=== PATIENT | female | born 1985 | race Caucasian/White ===

== ENCOUNTER → 2020-06-08 10:04 | Outpatient (CLI) | payer OTHER, SELFPAY ==
[2020-06-08 10:52] LABS: Hemoglobin 14.7 g/dL (12.0-16.0); Mean Corpuscular HGB Conc 34.3 % (30-36); Mean Corpuscular Volume 87.6 fL (80-100); Platelet Count 219 X10^3/uL (150-400); Red Blood Cell Count 4.91 X10^6/uL (4.0-5.2); Red Cell Distribution Width 12.8 % (11.6-14.8); White Blood Cell Count 5.9 X10^3/uL (4.5-11.0)
[2020-06-08 11:09] LABS: Alanine Aminotransferase 19 IU/L (<35); Albumin 4.6 g/dL (3.5-5.0); Albumin Globulin Ratio 1.6 (1.0-2.8); Alkaline Phosphatase 54 U/L (38-126); Aspartate Aminotransferase 32 IU/L (14-36); BUN Creatinine Ratio 18.3 (6-22); Bilirubin Total 1.4 mg/dL (0.2-1.3); Blood Urea Nitrogen 13 mg/dL (7-17); Calcium 9.8 mg/dL (8.4-10.2); Carbon Dioxide 23 mmol/L (22-32); Chloride 106 mmol/L (98-107); Cholesterol 177 mg/dL (140-199); Estimated Glomerular Filt Rate > 60.0 mL/min (>60); Globulin 2.9 g/dL (1.7-4.1); Glucose 101 mg/dL (70-100); HDL Cholesterol 52 mg/dL (40-60); HEMOLYSIS < 15 (0-50); LDL Cholesterol Calculated 110 mg/dL (<100); Potassium 4.7 mmol/L (3.4-5.1); Sodium 139 mmol/L (137-145); Total Protein 7.5 g/dL (6.3-8.2); Triglycerides 73 mg/dL (35-150)
[2020-06-08 11:19] LABS: Vitamin D 25 Hydroxy (D3) 80.4 ng/mL (30.0-100.0)
[2020-06-08 11:37] LABS: Testosterone 57.1 ng/dL (5.71-77.0)
== END ==
PROVIDERS: PCP Registered Nurse Diabetes Educator; Referring Provider Registered Nurse Diabetes Educator; Visit Provider Registered Nurse Diabetes Educator
DX: R63.5 Abnormal weight gain (principal)
CPT/HCPCS: 36415; 80053; 80061; 82306; 84403; 84443; 85027

== ENCOUNTER → 2020-07-11 12:20 | Outpatient (CLI) | payer OTHER, SELFPAY ==
[2020-07-11 13:55] LABS: Hemoglobin A1C% w Est Avg Glu 5.5 % (4.0-6.0)
== END ==
PROVIDERS: PCP Registered Nurse Diabetes Educator; Referring Provider Registered Nurse Diabetes Educator; Visit Provider Registered Nurse Diabetes Educator
DX: L68.0 Hirsutism (principal); R63.5 Abnormal weight gain; R73.01 Impaired fasting glucose
CPT/HCPCS: 36415; 83036

== ENCOUNTER → 2020-10-07 07:35 | Outpatient (CLI) | payer OTHER, SELFPAY ==
[2020-10-07 09:14] LABS: Follicle Stimulating Hormone 6.79 mIU/mL; Luteinizing Hormone 7.15 mIU/mL
[2020-10-07 09:21] LABS: Free T4, Direct Thyroxine 0.87 ng/dL (0.78-2.19)
[2020-10-07 09:32] LABS: Cortisol Random 13.4 ug/dL
[2020-10-07 09:34] LABS: Thyroid Stimulating Hormone 2.32 uIU/mL (0.47-4.68)
[2020-10-07 09:36] LABS: Testosterone 41.2 ng/dL (5.71-77.0)
[2020-10-18 12:10] LABS: 17 Hydroxycorticoste mg/g CRT 9.8 mg/gCR (2.0-6.5)
== END ==
PROVIDERS: PCP Registered Nurse Diabetes Educator; Referring Provider Student in an Organized Health Care Education/Training Program; Visit Provider Student in an Organized Health Care Education/Training Program
DX: E11.9 Type 2 diabetes mellitus without complications (principal); Z79.4 Long term (current) use of insulin
CPT/HCPCS: 36415; 82533; 83001; 83002; 83491; 84403; 84439; 84443

== ENCOUNTER → 2021-05-11 07:00 | Outpatient (CLI) | payer OTHER, SELFPAY ==
--- NOTE | 2021-05-11 07:01 | DI.RAD.S_ITS ---
PROCEDURE: XR WRIST RT MIN 3V INDICATIONS: eval R wrist pain, remote trauma TECHNIQUE: 4 views of the wrist were acquired. COMPARISON: None. FINDINGS: Bones: No fractures or dislocations. No suspicious bony lesions. Scaphoid view: Scaphoid is intact. Soft tissues: No suspicious soft tissue calcifications. IMPRESSION: No fracture. No osseous lesion. If symptoms and/or clinical suspicion for pathology persists, further assessment with repeat radiographs (7-10 days) or advanced imaging (e.g. CT, MRI or bone scan) should be considered. Dictated by: Kalie Saleh MD, PhD on 05/11/2021 at 9:17 Approved by: Kalie Saleh MD, PhD on 05/11/2021 at 9:17
[2021-05-11 08:03] LABS: Hemoglobin A1C% w Est Avg Glu 5.5 % (4.0-6.0)
[2021-05-11 08:08] LABS: Cholesterol 183 mg/dL (140-199); Glucose 84 mg/dL (70-100); HDL Cholesterol 44 mg/dL (40-60); LDL Cholesterol Calculated 111 mg/dL (<100); Triglycerides 138 mg/dL (35-150)
== END ==
PROVIDERS: PCP Registered Nurse Diabetes Educator; Referring Provider Registered Nurse Diabetes Educator; Visit Provider Registered Nurse Diabetes Educator
DX: M25.531 Pain in right wrist (principal); E78.00 Pure hypercholesterolemia, unspecified; R73.01 Impaired fasting glucose
CPT/HCPCS: 36415; 73110; 80061; 82947; 83036

== ENCOUNTER 2021-08-19 08:59 | Emergency (ER) | payer OTHER, SELFPAY ==
[2021-08-19 09:13] VITALS: BP 141/75; PULSE 56; RESP 20; TEMP 36.5; O2SAT 97
--- NOTE | 2021-08-19 09:57 | ED.EXTPRO ---
HPI - Extremity Problem General Chief complaint: Extremity Problem,Nontraumatic Stated complaint: Thinks she has Blood clot in [place] Left leg Time Seen by Provider: 08/19/21 09:57 Source: patient Mode of arrival: Ambulatory History of Present Illness HPI Narrative: Patient is a 36-year-old female history of pre diabetes and asthma presenting today with left eckert pain. She says that a few weeks ago she had a blood clot in her right leg by her knee she was not put on blood thinners. Likely a superficial thrombosis. Today she says she has been noticing a bump along her eckert. They are slightly tender to touch. She is afraid that they might be blood clots. They have been there for number of weeks and not going away. They are not getting any bigger. They are not red. She has absolutely no calf pain. She did not control she has not traveled anywhere recently she has not been hospitalized or sedentary. She is worried that she might have a blood clot. She also states that her whole family has problem with varicose veins and she has an appointment with a varicose vein provider. Related Data Home Medications Medication Instructions Recorded Confirmed ascorbate calcium (vitamin C) PO 12/03/19 07/19/21 multivitamin with iron PO 12/03/19 07/19/21 vitamin B complex PO 12/03/19 07/19/21 Previous Rx's Medication Instructions Recorded albuterol sulfate 90 mcg/actuation 2 puff inhalation Q4-6H PRN 05/08/21 aerosol inhaler shortness of breath or wheezing #17 grams hydroxyzine HCl 25 mg tablet 25 mg PO QID PRN anxiety #30 tabs 05/08/21 Allergies Allergy/AdvReac Type Severity Reaction Status Date / Time No Known Drug Allergies Allergy Verified 08/19/21 09:25 Review of Systems Review of Systems Narrative: GENERAL: Denies chills, fatigue, malaise, fever, sweats, travel HEENT: Denies sinus pain, ear pain, sore throat, difficulty swallowing, neck pain RESPIRATORY: Denies dyspnea, cough, wheezing, hemoptysis, sputum. CARDIOVASCULAR: Denies chest pain, palpitations, orthopnea, edema GASTROINTESTINAL: Denies nausea, vomiting, abdominal pain, diarrhea, constipation, melena. : Denies dysuria, frequency, incontinence, hematuria, urinary retention, flank pain. MUSCULOSKELETAL: See HPI SKIN: No rash, no erythema, no pruritus NEUROLOGIC: Denies weakness, dizziness, headache, numbness, change in speech, confusion PSYCHIATRIC: No concerning psychosocial issues. 12 point review of systems is negative except for those stated above and HPI Patient History Medical History Elevated LDL cholesterol level Impaired fasting blood sugar Overweight (BMI 25.0-29.9) PMDD (premenstrual dysphoric disorder) Urinary, incontinence, stress female Vaginal delivery (vaginal after ) Surgical History History of breast lump/mass excision Previous section Social History Smoking Status: Never smoker Smoking Status: Never smoker alcohol intake frequency: 0-2 drinks per day Substance Use Type: does not use Exam Initial Vital Signs Initial Vital Signs: Vital Signs Temperature 97.7 F 08/19/21 09:13 Pulse Rate 56 L 08/19/21 09:13 Respiratory Rate 20 08/19/21 09:13 Blood Pressure 141/75 H 08/19/21 09:13 Pulse Oximetry 97 08/19/21 09:13 Oxygen Delivery Method 08/19/21 09:13 GENERAL: Well-appearing, well-nourished and in no acute distress. CARDIOVASCULAR: peripheral pulses in tact, cap refill <2 sec RESPIRATORY: No respiratory distress, speaks in full sentences without difficulty [ABDOMEN: Soft, nontender, no guarding or rebound] EXTREMITIES: Normal range of motion, no clubbing or edema. Neurovascularly intact Left lower leg no swelling no erythema calf is soft calf is nontender. She is tender over her eckert there is some small superficial veins probably the beginning of varicose vain NEUROLOGICAL: Cranial nerves II through XII grossly intact. Normal gait and speech. SKIN: Warm, dry, no petechiae, no rashes or lesions. Scores Wells' Criteria for DVT Active Cancer (Treatment within 6 months): No Bedridden recently >3 days or major surgery within 4 weeks: No Calf Swelling >3cm compared to other leg: No Collateral (nonvericose) superficial veins present: No Entire leg swollen: No Localized tenderness along the deep vein system: No Pitting edema, confined to symtomatic leg: No Paralysis, paresis, or recent plaster immobilization of ext: No Previously documented DVT: No Alternative dx to DVT as likely or more likely: No Wells' criteria for DVT: 0 Course Vital Signs Vital signs: Vital Signs - 8 hr 08/19/21 09:13 Temperature 97.7 F Pulse Rate 56 L Respiratory Rate 20 Blood Pressure 141/75 H Pulse Oximetry 97 Oxygen Delivery Method Room Air MDM - Extremity (Nontraumatic) MDM Narrative Medical decision making narrative: Patient has had bumps over her eckert for number of weeks and soft calf this is not consistent with DVT signs or symptoms. She also did not previously had a DVT she was never placed on blood thinners likely a superficial thrombosis in her right leg. Patient is educated and reassured Discharge Plan Departure Patient Disposition: Home Clinical Impression: Varicose veins of leg with pain Instructions: DI for Varicose Veins Activity Restrictions/Additional Instructions: *You have been diagnosed with probable varicose vein *What to do: At this time her symptoms are not consistent with blood clot. I suspected there is a tortuous vein underneath the surface that he can not quite see yet causing her pain. Ice and ibuprofen to see if that helps *Continue to take medications as directed *Follow up with your primary care provider in 2-3 days or call [phone] *Return to ER if you should have pain behind calf leg swelling is redness chest pain or any new, worsening or concerning symptoms Prescriptions: No Action ascorbate calcium (vitamin C) PO multivitamin with iron PO vitamin B complex PO albuterol sulfate 90 mcg/actuation HFA aerosol inhaler 2 puff INHALATION Q4-6H PRN (Reason: shortness of breath or wheezing) Qty: 17 1RF hydroxyzine HCl 25 mg tablet 25 mg PO QID PRN (Reason: anxiety) Qty: 30 3RF Referrals: Hunter Jc ARNP [Primary Care Provider] - Visit Report Forms: Patient Portal/API
== END 2021-08-19 10:15 | disposition home or self-care (01) ==
PROVIDERS: Emergency Provider Emergency Medicine; PCP Registered Nurse Diabetes Educator
DX: I83.812 Varicose veins of left lower extremity with pain (principal)
CPT/HCPCS: 99281

== ENCOUNTER 2021-08-22 10:35 | Emergency (ER) | payer OTHER, SELFPAY ==
[2021-08-22 12:03] VITALS: BP 141/100; PULSE 56; RESP 16; TEMP 36.7; O2SAT 9; BMI 29.9
--- NOTE | 2021-08-22 12:14 | DI.US.S_ITS ---
PROCEDURE: US PERIPH VENOUS LOW EXTREM LT INDICATIONS: CALF BRUISING, BURNS LUMPS TECHNIQUE: Real-time imaging, as well as color and pulse Doppler interrogation, were performed of the lower extremity deep veins from the inguinal ligament to the popliteal fossa. COMPARISON: None. FINDINGS: The common femoral, femoral and popliteal veins are normally compressible, and free of intraluminal thrombus. Color and pulse Doppler demonstrate normal phasic intraluminal flow. There is normal augmentation response to distal compression maneuver. IMPRESSION: No evidence of deep vein thrombosis involving the left lower extremity. Dictated by: Kalie Saleh MD, PhD on 08/22/2021 at 13:31 Approved by: Kalie Saleh MD, PhD on 08/22/2021 at 13:31
--- NOTE | 2021-08-22 13:50 | ED_ITS ---
HPI - Extremity Problem General Chief complaint: Extremity Problem,Nontraumatic Stated complaint: Blood clot in leg- painful, muscle spasms Time Seen by Provider: 08/22/21 13:47 Mode of arrival: Family Vehicle History of Present Illness HPI Narrative: Patient is a 36-year-old female who presents for the 2nd time this week in regards to her left leg. She is concerned for some bruising in her left calf. She was seen and evaluated here by myself a few days ago concern for a DVT. She at that time was complaining of some bumps over her eckert. Not clinically consistent with DVT and a Wells score of 0. Today she again is presenting concern for possible DVT she has a spontaneous bruise in her left calf but she has absolutely no swelling. Nothing has changed since then she has a little bit more pain is but no significant swelling. A few months prior she had pain in right leg and was diagnosed with ?blood clot she says nothing was done for it. She is extremely concerned about pain in her calf for there is bruising now. Related Data Home Medications Medication Instructions Recorded Confirmed ascorbate calcium (vitamin C) PO 12/03/19 07/19/21 multivitamin with iron PO 12/03/19 07/19/21 vitamin B complex PO 12/03/19 07/19/21 Previous Rx's Medication Instructions Recorded albuterol sulfate 90 mcg/actuation 2 puff inhalation Q4-6H PRN 05/08/21 aerosol inhaler shortness of breath or wheezing #17 grams hydroxyzine HCl 25 mg tablet 25 mg PO QID PRN anxiety #30 tabs 05/08/21 Allergies Allergy/AdvReac Type Severity Reaction Status Date / Time No Known Drug Allergies Allergy Verified 08/22/21 12:09 Review of Systems Review of Systems Narrative: GENERAL: Denies chills,fever HEENT: Denies throat pain RESPIRATORY: Denies dyspnea, cough, wheezing CARDIOVASCULAR: Denies chest pain, palpitations GASTROINTESTINAL: Denies nausea, vomiting MUSCULOSKELETAL: See HPI SKIN: No rash, no laceration, no pruritus NEUROLOGIC: Denies weakness, dizziness, headache, numbness 8 point review of systems is negative except for those stated above and HPI Patient History Medical History Elevated LDL cholesterol level Impaired fasting blood sugar Overweight (BMI 25.0-29.9) PMDD (premenstrual dysphoric disorder) Urinary, incontinence, stress female Vaginal delivery (vaginal after ) Surgical History History of breast lump/mass excision Previous section Social History Smoking Status: Never smoker Smoking Status: Never smoker alcohol intake frequency: 0-2 drinks per day Substance Use Type: does not use Exam Initial Vital Signs Initial Vital Signs: Vital Signs Temperature 98.0 F 08/22/21 12:03 Pulse Rate 56 L 08/22/21 12:03 Respiratory Rate 16 08/22/21 12:03 Blood Pressure 141/100 H 08/22/21 12:03 Pulse Oximetry 9 L 08/22/21 12:03 Oxygen Delivery Method 08/22/21 12:03 GENERAL: Well-appearing, well-nourished and in no acute distress. CARDIOVASCULAR: peripheral pulses in tact, cap refill <2 sec RESPIRATORY: No respiratory distress, speaks in full sentences without difficulty EXTREMITIES: Normal range of motion, no clubbing or edema. Neurovascularly intact Left lower extremity is absolutely no swelling no erythema no tenderness over deep veins she has a very light possible contusion on the side of her calf NEUROLOGICAL: Cranial nerves II through XII grossly intact. Normal gait and speech. SKIN: Warm, dry, no petechiae, no rashes or lesions. No other contusions no petechiae Course Orders Ordered: ED Orders 08/22/21 12:14 US periph venous low extrem lt Stat Vital Signs Vital signs: Vital Signs - 8 hr 08/22/21 12:03 08/22/21 14:08 Temperature 98.0 F Pulse Rate 56 L 59 L Respiratory Rate 16 16 Blood Pressure 141/100 H 141/90 H Pulse Oximetry 9 L 99 Oxygen Delivery Method Room Air Room Air MDM - Extremity (Nontraumatic) Imaging Data US - DVT: Radiologist's Impression: D Accession Number: [id number] ?? Procedure: US periph venous low extrem lt Ordering Provider: Cira Pablo D.O. PROCEDURE:? US PERIPH VENOUS LOW EXTREM LT ? INDICATIONS:? CALF BRUISING, ECKERT LUMPS ? TECHNIQUE:? Real-time imaging, as well as color and pulse Doppler interrogation, were performed of the lower extremity deep veins from the inguinal ligament to the popliteal fossa.? ? COMPARISON:? None. ? FINDINGS:? The common femoral, femoral and popliteal veins are normally compressible, and free of intraluminal thrombus.? Color and pulse Doppler demonstrate normal phasic intraluminal flow.? There is normal augmentation response to distal compression maneuver. ? ? IMPRESSION:? No evidence of deep vein thrombosis involving the left lower extremity. ? ? Dictated by: Kalie Saleh MD, PhD on 08/22/2021 at? [facility] Narrative Medical decision making narrative: The patient presents for the 2nd time this week concern for DVT. She clinically did not have any signs or symptoms of a DVT a few days ago she does not have any today. She has a negative ultrasound. She has a small bruise which is not a D VT. She has no risk factors for DVT. I have tried explaining to this to her in many different ways. I have explained that there is no emergency no further workup to be done in the emergency department however I strongly encouraged her to follow up with her primary care provider. Discharge Plan Departure Patient Disposition: Home Clinical Impression: Contusion of left lower leg Instructions: Contusion Activity Restrictions/Additional Instructions: *You have been diagnosed with contusion *What to do: You have a light bruise on her left leg. There is no evidence of blood clot not a superficial 1 or at deep vein thrombosis today. *Continue to take medications as directed *Follow up with your primary care provider in 2-3 days or call [phone] *Return to ER if you should have swelling, redness, fever, chest pain, shortness of breath or any new, worsening or concerning symptoms Prescriptions: No Action ascorbate calcium (vitamin C) PO multivitamin with iron PO vitamin B complex PO albuterol sulfate 90 mcg/actuation HFA aerosol inhaler 2 puff INHALATION Q4-6H PRN (Reason: shortness of breath or wheezing) Qty: 17 1RF hydroxyzine HCl 25 mg tablet 25 mg PO QID PRN (Reason: anxiety) Qty: 30 3RF Referrals: Hunter Jc ARNP [Primary Care Provider] - Visit Report Forms: Patient Portal/API
[2021-08-22 14:08] VITALS: BP 141/90; PULSE 59; RESP 16; O2SAT 99
== END 2021-08-22 14:08 | disposition home or self-care (01) ==
PROVIDERS: Emergency Provider Emergency Medicine; PCP Registered Nurse Diabetes Educator
DX: S80.12XA Contusion of left lower leg, initial encounter (principal)
CPT/HCPCS: 93971; 99281; 99283

== ENCOUNTER → 2021-10-03 09:22 | Outpatient (CLI) | payer OTHER, SELFPAY ==
[2021-10-03 10:29] LABS: Hematocrit 41.1 % (36-46); Hemoglobin 14.2 g/dL (12.0-16.0); Mean Corpuscular HGB Conc 34.4 % (30-36); Mean Corpuscular Hemoglobin 30.3 PG (26-34); Platelet Count 191 X10^3/uL (150-400); Red Blood Cell Count 4.67 X10^6/uL (4.0-5.2); Red Cell Distribution Width 13.7 % (11.6-14.8); White Blood Cell Count 5.5 X10^3/uL (4.5-11.0)
[2021-10-03 10:30] LABS: Hemoglobin A1C% w Est Avg Glu 5.4 % (4.0-6.0)
[2021-10-03 10:34] LABS: Alanine Aminotransferase 21 IU/L (<35); Albumin 4.6 g/dL (3.5-5.0); Albumin Globulin Ratio 1.5 (1.0-2.8); Alkaline Phosphatase 43 U/L (38-126); Aspartate Aminotransferase 30 IU/L (14-36); BUN Creatinine Ratio 18.7 (6-22); Bilirubin Total 1.4 mg/dL (0.2-1.3); Blood Urea Nitrogen 14 mg/dL (7-17); Calcium 9.2 mg/dL (8.4-10.2); Carbon Dioxide 26 mmol/L (22-32); Chloride 106 mmol/L (98-107); Cholesterol 182 mg/dL (140-199); Estimated Glomerular Filt Rate > 60 mL/min (>60); Globulin 3.1 g/dL (1.7-4.1); Glucose 89 mg/dL (70-100); HDL Cholesterol 47 mg/dL (40-60); HEMOLYSIS < 15 (0-50); LDL Cholesterol Calculated 118 mg/dL (<100); Potassium 4.4 mmol/L (3.4-5.1); Sodium 138 mmol/L (137-145); Total Protein 7.7 g/dL (6.3-8.2); Triglycerides 84 mg/dL (35-150)
[2021-10-03 11:06] LABS: Ferritin 21 ng/mL (6-137); Testosterone 38.6 ng/dL (5.71-77.0)
[2021-10-03 13:36] LABS: HEMOLYSIS < 15 (0-50); Iron 111 ug/dL (37-170)
[2021-10-03 13:47] LABS: Percent Iron Saturation 36 % (15-50); Total Iron Binding Capacity 308 ug/dL (265-497); Transferrin 269 mg/dL (206-381)
[2021-10-03 14:08] LABS: TSH w/ Reflex to FT4 1.58 uIU/mL (0.47-4.68)
== END ==
PROVIDERS: PCP Registered Nurse Diabetes Educator; Referring Provider Registered Nurse Diabetes Educator; Visit Provider Registered Nurse Diabetes Educator
DX: E78.00 Pure hypercholesterolemia, unspecified (principal); L68.0 Hirsutism; R63.5 Abnormal weight gain; R73.01 Impaired fasting glucose
CPT/HCPCS: 36415; 80053; 80061; 82533; 82627; 82728; 83036; 83540; 83550; 84403; 84443; 85027

== ENCOUNTER → 2022-10-31 14:14 | Outpatient (CLI) | payer OTHER, SELFPAY ==
[2022-10-31 15:24] LABS: Add Manual Diff / Slide Review NO; Basophils Absolute Auto 0 /uL (0-100); Basophils Percent Auto 0.5 % (0-2); Eosinophils Absolute Auto 100 /uL (0-450); Eosinophils Percent Auto 1.3 % (2-4); Hematocrit 41.1 % (36-46); Lymphocytes Absolute Auto 2400 /uL (1100-4500); Lymphocytes Percent Auto 32.3 % (25-40); Mean Corpuscular HGB Conc 34.1 % (30-36); Mean Corpuscular Hemoglobin 30.3 PG (26-34); Monocytes Absolute Auto 600 /uL (0-900); Monocytes Percent Auto 7.4 % (3-14); Neutrophils Absolute Auto 4400 /uL (1500-7000); Neutrophils Percent Auto 58.5 % (50-75); Platelet Count 214 X10^3/uL (150-400); Red Blood Cell Count 4.61 X10^6/uL (4.0-5.2); Red Cell Distribution Width 13.2 % (11.6-14.8); White Blood Cell Count 7.6 X10^3/uL (4.5-11.0)
[2022-10-31 15:33] LABS: Hemoglobin A1C% w Est Avg Glu 5.2 % (4.0-6.0)
[2022-10-31 15:50] LABS: Alanine Aminotransferase 26 IU/L (<35); Albumin 4.6 g/dL (3.5-5.0); Albumin Globulin Ratio 1.5 (1.0-2.8); Alkaline Phosphatase 44 U/L (38-126); Aspartate Aminotransferase 31 IU/L (14-36); BUN Creatinine Ratio 18.8 (6-22); Bilirubin Total 1.2 mg/dL (0.2-1.3); Blood Urea Nitrogen 15 mg/dL (7-17); Calcium 9.7 mg/dL (8.4-10.2); Carbon Dioxide 21 mmol/L (22-32); Chloride 105 mmol/L (98-107); Estimated Glomerular Filt Rate > 60 mL/min (>60); Glucose 107 mg/dL (70-100); HEMOLYSIS < 15 (0-50); Iron 115 ug/dL (37-170); Potassium 4.3 mmol/L (3.4-5.1); Sodium 137 mmol/L (137-145); Total Protein 7.6 g/dL (6.3-8.2)
[2022-10-31 16:02] LABS: Percent Iron Saturation 30 % (15-50); Total Iron Binding Capacity 382 ug/dL (265-497); Transferrin 280 mg/dL (206-381)
== END ==
PROVIDERS: PCP Registered Nurse Diabetes Educator; Referring Provider Physician Assistant; Visit Provider Physician Assistant
DX: N92.0 Excessive and frequent menstruation with regular cycle (principal); R53.83 Other fatigue
CPT/HCPCS: 36415; 80053; 83036; 83540; 83550; 85025

== ENCOUNTER 2022-12-08 12:42 | Emergency (ER) | payer OTHER, SELFPAY ==
[2022-12-08 12:46] VITALS: BP 146/79; PULSE 50; RESP 16; TEMP 36.9; O2SAT 98; BMI 26.6
--- NOTE | 2022-12-08 14:05 | ED.FEMALEGU ---
HPI - Female Genitourinary General Chief complaint: Urogenital-Female Stated complaint: THINKS BLOOD CLOT Time Seen by Provider: 12/08/22 13:45 Source: patient Mode of arrival: Ambulatory History of Present Illness HPI Narrative: Patient is a 37-year-old female who presents today with left labia pain. She reports that she has a history of varicose veins with but over the last 3 days has had increasing pain. She feels like a lump in her left labia. She thought it might be lymph node. She denies any abnormal vaginal discharge he is no concern for STD she is no painful or frequent urination. She is no abdominal pain. She reports that she did just get her menstrual cycle. It hurts to stand she is been lying flat most of the days. She is not tried any Tylenol or ibuprofen at home. OBGYN is Dr. Kolb. It appears that she was seen in July with Dr. Kolb for something similar. Related Data Home Medications Medication Instructions Recorded Confirmed ascorbate calcium (vitamin C) PO 12/03/19 11/12/22 multivitamin with iron PO 12/03/19 11/12/22 vitamin B complex PO 12/03/19 11/12/22 Previous Rx's Medication Instructions Recorded albuterol sulfate 90 mcg/actuation 2 puff inhalation Q4-6H PRN 05/08/21 aerosol inhaler shortness of breath or wheezing #17 grams hydroxyzine HCl 25 mg tablet 25 mg PO QID PRN anxiety #30 tabs 05/08/21 tranexamic acid 650 mg tablet 1,300 mg (2 x 650 mg) PO TID Heavy 08/03/22 periods #30 tabs escitalopram oxalate 5 mg tablet 5 mg PO DAILY #30 tabs 11/12/22 lorazepam 0.5 mg tablet 0.25 mg (1/2 x 0.5 mg) PO Q6H PRN 11/12/22 anxiety #10 tabs Allergies Allergy/AdvReac Type Severity Reaction Status Date / Time No Known Drug Allergies Allergy Verified 11/12/22 10:34 Review of Systems Review of Systems ROS Unobtainable: All systems reviewed & are unremarkable except as noted in HPI and below Patient History Medical History Elevated LDL cholesterol level Impaired fasting blood sugar PMDD (premenstrual dysphoric disorder) (vaginal after ) Vaginal delivery Overweight (BMI 25.0-29.9) Urinary, incontinence, stress female Surgical History Previous section History of breast lump/mass excision alcohol intake frequency: 0-2 drinks per day Substance Use Type: does not use Exam Initial Vital Signs Initial Vital Signs: Vital Signs Temperature 98.5 F 12/08/22 12:46 Pulse Rate 50 L 12/08/22 12:46 Respiratory Rate 16 12/08/22 12:46 Blood Pressure 146/79 H 12/08/22 12:46 Pulse Oximetry 98 12/08/22 12:46 Oxygen Delivery Method Room Air 12/08/22 12:46 GENERAL: Well-appearing, well-nourished and in no acute distress. CARDIOVASCULAR: peripheral pulses in tact, cap refill <2 sec RESPIRATORY: No respiratory distress, speaks in full sentences without difficulty ABDOMEN: Soft, nontender, no guarding or rebound PELVIC: Normal external vaginal exam. Patient reports feeling swelling or lump left superior labia. Upon my exam and palpation there is absolutely no abscess no lesion no swelling no obvious varicose veins no gross vaginal discharge EXTREMITIES: Normal range of motion, no clubbing or edema. Neurovascularly intact NEUROLOGICAL: Cranial nerves II through XII grossly intact. Normal gait and speech. SKIN: Warm, dry, no petechiae, no rashes or lesions. Course Vital Signs Vital signs: Vital Signs - 8 hr 12/08/22 12:46 Temperature 98.5 F Pulse Rate 50 L Respiratory Rate 16 Blood Pressure 146/79 H Pulse Oximetry 98 Oxygen Delivery Method Room Air MDM - Female Genitourinary MDM Narrative Medical decision making narrative: Patient is a well-appearing 37-year-old female who presents with something that she feels in her left late get. She reports having history of vaginal varicose veins, which are currently not appreciated on exam. On exam thing is palpable not feel lymph node there is no evidence of abscess. She denies any risk of STD she has no urination symptoms she has no abdominal pain. At this time I recommend supportive only. Follow-up with PCP. It appears that Dr. Kolb's note mentioned something similar back in July. Discharge Plan Departure Patient Disposition: Home Clinical Impression: Vaginal pain Activity Restrictions/Additional Instructions: *You have been diagnosed with vaginal pain varicose veins *What to do: At this time try hot bath or ice see if those helps make it feel better. Please continue to monitor. I do recommend following up with freight and passenger agent *Continue to take medications as directed Motrin 600 mg every 8 hours for the next 5-7 days as needed *Follow up with your primary care provider in 2-3 days or call [phone] *Return to ER if you should have increasing pain swelling redness vaginal discharge or any new, worsening or concerning symptoms Prescriptions: No Action tranexamic acid 650 mg tablet 1,300 mg PO TID Qty: 30 12RF Rx Instructions: Start medication with the start of each period ascorbate calcium (vitamin C) PO multivitamin with iron PO vitamin B complex PO albuterol sulfate 90 mcg/actuation HFA aerosol inhaler 2 puff INHALATION Q4-6H PRN (Reason: shortness of breath or wheezing) Qty: 17 1RF hydroxyzine HCl 25 mg tablet 25 mg PO QID PRN (Reason: anxiety) Qty: 30 3RF lorazepam 0.5 mg tablet 0.25 mg PO Q6H PRN (Reason: anxiety) Qty: 10 0RF escitalopram oxalate 5 mg tablet 5 mg PO DAILY Qty: 30 1RF Referrals: Hunter Jc ARNP [Primary Care Provider] - Stand Alone Forms: Patient Portal/API
== END 2022-12-08 14:30 | disposition home or self-care (01) ==
PROVIDERS: Emergency Provider Emergency Medicine; PCP Registered Nurse Diabetes Educator
DX: R10.2 Pelvic and perineal pain (principal)
CPT/HCPCS: 99281

== ENCOUNTER → 2023-01-23 12:39 | Outpatient (CLI) | payer OTHER, SELFPAY ==
[2023-01-23 15:13] LABS: COVID19 -Nasal RAPID Negative (Negative)
== END ==
PROVIDERS: PCP Registered Nurse Diabetes Educator; Visit Provider Registered Nurse Diabetes Educator
DX: Z20.822 Contact with and (suspected) exposure to COVID-19 (principal)
CPT/HCPCS: 87635

== ENCOUNTER → 2023-05-08 09:39 | Outpatient (CLI) | payer OTHER, SELFPAY ==
[2023-05-08 10:53] LABS: Hemoglobin A1C% w Est Avg Glu 5.4 % (4.0-6.0)
[2023-05-08 11:18] LABS: Follicle Stimulating Hormone 5.51 mIU/mL
[2023-05-14 01:41] LABS: Percent Free Testosterone 2.61 % (0.50-2.80); Testosterone Total 26.9 ng/dL (10.0-55.0)
== END ==
LOC: LAB 09:39
PROVIDERS: PCP Registered Nurse Diabetes Educator; Referring Provider Obstetrics & Gynecology; Visit Provider Obstetrics & Gynecology
DX: E28.2 Polycystic ovarian syndrome (principal)
CPT/HCPCS: 36415; 82627; 83001; 83002; 83036; 84402; 84403

== ENCOUNTER → 2023-07-08 10:25 | Outpatient (CLI) | payer OTHER, SELFPAY ==
--- NOTE | 2023-07-08 11:00 | DI.US.S_ITS ---
PROCEDURE: US PELVIC COMPLETE INDICATIONS: Thickened endometrium on US 04/09/23 TECHNIQUE: Real-time scanning was performed of the pelvic organs, with image documentation. Additional endovaginal scanning was necessary due to incomplete visualization of the adnexal and endometrial structures by transabdominal scanning. COMPARISON: [facility], , US PELVIC, 04/09/2023, 9:01. FINDINGS: Uterus: Uterus is anteverted and normal in size at 8.3 x 4.6 x 4.7 cm. The myometrium is homogeneous. The endometrium measures 14 mm combined thickness. It measures 17 mm on prior exam. Ovaries: The right ovary measures 4.1 x 1.9 x 3.5 cm, with a calculated ovarian volume of 14.2 cc. The left ovary measures 3.1 by 2.0 x 3.1 cm, with a calculated ovarian volume of 10 cc. Other: No pathologic free abdominal or pelvic fluid. IMPRESSION: Slight interval decrease in size of endometrial thickness. No discrete mass is identified. If concern persists for persistent thickening, endometrial sampling may be obtained. We strive to produce accurate, complete, and clear reports of imaging services. To assist us in improving patient care, this report was composed using standard report templates and voice recognition software. Therefore, it may contain abnormal punctuation, insertions and/or omissions. Occasional wrong-word or sound-alike substitutions may occur. Though we review the report and make efforts to correct it, we do recommend that the report be read carefully in proper context to recognize any text inaccuracies. Dictated by: Jessenia Mullen M.D. on 07/08/2023 at 21:16 Approved by: Jessenia Mullen M.D. on 07/08/2023 at 21:18
== END ==
PROVIDERS: PCP Registered Nurse Diabetes Educator; Referring Provider Obstetrics & Gynecology; Visit Provider Obstetrics & Gynecology
DX: R93.89 Abnormal findings on diagnostic imaging of other specified body structures (principal)
CPT/HCPCS: 76830; 76856

== ENCOUNTER → 2024-09-16 10:21 | Outpatient (CLI) | payer OTHER, SELFPAY ==
[2024-09-16 10:56] LABS: Hematocrit 40.9 % (36-46); Hemoglobin 14.1 g/dL (12.0-16.0); Mean Corpuscular HGB Conc 34.5 % (30-36); Mean Corpuscular Hemoglobin 30.5 PG (26-34); Mean Corpuscular Volume 88.6 fL (80-100); Platelet Count 210 X10^3/uL (150-400)
[2024-09-16 11:21] LABS: Hemoglobin A1C% w Est Avg Glu 5.5 % (4.0-6.0)
[2024-09-16 11:22] LABS: Alanine Aminotransferase 44 IU/L (<35); Albumin 4.6 g/dL (3.5-5.0); Albumin Globulin Ratio 1.6 (1.0-2.8); Alkaline Phosphatase 52 U/L (38-126); Blood Urea Nitrogen 10 mg/dL (7-17); Calcium 9.7 mg/dL (8.4-10.2); Carbon Dioxide 24 mmol/L (22-32); Chloride 106 mmol/L (98-107); Cholesterol 206 mg/dL (140-199); Estimated Glomerular Filt Rate > 60 mL/min (>60); Globulin 2.8 g/dL (1.7-4.1); Glucose 97 mg/dL (70-99); HDL Cholesterol 54 mg/dL (40-60); HEMOLYSIS < 15 (0-50); Potassium 4.2 mmol/L (3.4-5.1); Sodium 138 mmol/L (137-145); Total Protein 7.4 g/dL (6.3-8.2); Triglycerides 121 mg/dL (35-150)
[2024-09-16 11:33] LABS: Free T4, Direct Thyroxine 0.85 ng/dL (0.78-2.19)
[2024-09-16 11:47] LABS: Thyroid Stimulating Hormone 1.36 uIU/mL (0.47-4.68)
[2024-09-16 11:49] LABS: Estradiol, Total 156.2 pg/mL
[2024-09-16 11:51] LABS: Cortisol AM (Before 10AM) 5.97 ug/dL (4.46-22.7)
== END ==
PROVIDERS: PCP Registered Nurse Diabetes Educator; Referring Provider Registered Nurse Diabetes Educator; Visit Provider Registered Nurse Diabetes Educator
DX: E28.2 Polycystic ovarian syndrome (principal); R73.01 Impaired fasting glucose; E78.00 Pure hypercholesterolemia, unspecified; E66.3 Overweight; Z00.00 Encounter for general adult medical examination without abnormal findings
CPT/HCPCS: 36415; 80053; 80061; 82533; 82627; 82670; 83036; 83498; 84403; 84439; 84443; 85027

== ENCOUNTER → 2024-11-02 10:55 | Outpatient (CLI) | payer OTHER, SELFPAY ==
[2024-11-02 12:18] LABS: Alanine Aminotransferase 20 IU/L (<35); Albumin 4.7 g/dL (3.5-5.0); Albumin Globulin Ratio 1.6 (1.0-2.8); Alkaline Phosphatase 50 U/L (38-126); Globulin 3.0 g/dL (1.7-4.1); HEMOLYSIS < 15 (0-50); Total Protein 7.7 g/dL (6.3-8.2)
[2024-11-03 15:50] LABS: Hepatitis B Surface Antigen NEGATIVE s/c (NEGATIVE)
[2024-11-03 15:59] LABS: Hep C Virus Ab w/Reflex Quant NEGATIVE s/c (NEGATIVE)
[2024-11-03 19:08] LABS: SS A Ro Sjogrens Antibody < 0.2 AI (0.0-0.9); SS B La Sjogrens Antibody < 0.2 AI (0.0-0.9)
== END ==
PROVIDERS: PCP Registered Nurse Diabetes Educator; Referring Provider Registered Nurse Diabetes Educator; Visit Provider Registered Nurse Diabetes Educator
DX: M13.0 Polyarthritis, unspecified (principal); R74.8 Abnormal levels of other serum enzymes
CPT/HCPCS: 36415; 80076; 85651; 86038; 86140; 86200; 86235; 86430; 86803; 87340

== ENCOUNTER → 2025-01-11 11:45 | Outpatient (CLI) | payer OTHER, SELFPAY ==
--- NOTE | 2025-01-11 11:46 | DI.US.S_ITS ---
PROCEDURE: US THYROID INDICATIONS: eval possible nodules bilateral thyroid TECHNIQUE: Real-time scanning was performed of the thyroid gland, with image documentation. COMPARISON: None. FINDINGS: Thyroid: Right lobe measures 3.9 x 1.1 x 1.2 cm. Left lobe measures 4.6 x 1.1 x 1.4 cm. Isthmus is 3 cm thick. Echotexture is homogeneous. No discrete nodules. No lymphadenopathy. IMPRESSION: Unremarkable sonographic appearance of the thyroid gland and no discrete nodules are seen. Dictated by: Ulices Roche [facility] Interpreted: Easton Ruelas MD on 01/11/2025 at 13:09 Approved by: Easton Ruelas M.D. on 01/12/2025 at 9:46
== END ==
LOC: US 11:45
PROVIDERS: PCP Registered Nurse Diabetes Educator; Referring Provider Registered Nurse Diabetes Educator; Visit Provider Registered Nurse Diabetes Educator
DX: E04.1 Nontoxic single thyroid nodule (principal)
CPT/HCPCS: 76536